=== PATIENT | male | born 1940 | race Caucasian/White ===

== ENCOUNTER → 2019-08-13 | Outpatient (CLI) | payer MEDICARE, OTHER | LOC: M.LAB 13:08 → M.MRI 13:08 | DX: G20 Parkinson's disease (principal); R25.1 Tremor, unspecified; J32.0 Chronic maxillary sinusitis; G31.9 Degenerative disease of nervous system, unspecified ==

== ENCOUNTER → 2020-03-23 | Outpatient (CLI) | payer MEDICARE, OTHER | LOC: M.LAB 09:18 | PROVIDERS: ATTEND Surgery | DX: Z01.812 Encounter for preprocedural laboratory examination (principal); T63.301S Toxic effect of unspecified spider venom, accidental (unintentional), sequela; Z20.828 Contact with and (suspected) exposure to other viral communicable diseases ==